=== PATIENT | male | born 1960 | race Caucasian/White ===

== ENCOUNTER 2017-03-08 06:46 | Day surgery (SDC) | payer OTHER ==
--- NOTE | 2017-03-08 09:16 | OP ---
DATE OF PROCEDURE: 03/08/2017 PROCEDURE: Right thoracentesis. PREOPERATIVE DIAGNOSIS: Right pleural effusion. POSTOPERATIVE DIAGNOSIS: Right pleural effusion. ANESTHESIA: 1% lidocaine without epinephrine. DESCRIPTION OF PROCEDURE: Informed consent was obtained from the patient prior to the procedure. Neftali tesfaye understood the risks involved including bleeding, infection, accidental lung puncture. He agreed to proceed. The patient was placed in the sitting position. The right posterior hemothorax was scrubbed at the 5th-6th interspace at the posterior midscapular line. Local anesthetic was applied at the entry sit e. A [id number]-N-[id number] catheter was placed in the pleural space and approximately 2 liters of transud ative yellow pleural fluid was removed and sent for appropriate studies. The procedure was tolerate d well. Postoperative x-ray is pending.
--- NOTE | 2017-03-08 09:33 | HP ---
REASON FOR EVALUATION: Right pleural effusion. HISTORY OF PRESENT ILLNESS: Mr. Quintero is a 56-year-old male who presented to Dr. Kelly' office ear lier this week with shortness of breath. He underwent an echocardiogram which demonstrated a pleura l effusion and subsequently he underwent chest x-ray and a CT of the chest which showed a large righ t pleural effusion. This has not been noted previously, but he says this is the only imaging he has had done in quite some time. He has been short of breath for the last 3-4 months, he has had diffi culty lying down secondary to the shortness of breath. He has had severe dyspnea with exertion. PAST MEDICAL HISTORY: 1. Hyperlipidemia. 2. Anxiety. PAST SURGICAL HISTORY: He has had a hernia repair. He is also skin growth removed from his right c hest as a child. SOCIAL HISTORY: The patient does not smoke. He drinks 2-3 drinks 3 times a week. He says this is typically beer. 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 He did smoke marijuana as a teen, but has not smoked any since. MEDICATIONS: He is on Lipitor and Lexapro. ALLERGIES: None. FAMILY MEDICAL HISTORY: Remarkable for an aneurysm in his brother. REVIEW OF SYSTEMS: He has had a 20 pound weight loss in the last 2-3 months. He has had no fever, chills, nausea, vomiting, hematemesis, melena, hematochezia, hematuria or dysuria. PHYSICAL EXAMINATION: VITAL SIGNS: Pulse is in the 80s, blood pressure 130/70, O2 sat 92% on room air. GENERAL: He is awake, alert, and in no distress. HEENT: Pupils are clear. Sclerae are anicteric. Oropharynx clear. NECK: Without adenopathy or JVD. LUNGS: He has globally diminished breath sounds in the right chest. His left chest is clear. He h as dullness to percussion in the right base. CARDIOVASCULAR: S1, S2 regular, without murmur. ABDOMEN: Soft, nontender. Liver is not palpable. EXTREMITIES: No clubbing, cyanosis, or edema. LABORATORY AND X-RAY FINDINGS: Labs from December demonstrated a white blood cell count 7.1, hematocrit 46, platelet count 285. Sodium 141, potassium 4, chloride 109, CO2 25, BUN 14, creatinine 0.8, glu cose 89, AST of 17, ALT 21. I reviewed a CT of the chest from [facility] prior to the procedure today. I also reviewed [facility] x-ray. ASSESSMENT: Right pleural effusion. PLAN: Diagnostic and therapeutic thoracentesis. Please see accompanying operative note.
[2017-03-08 09:47] LABS: BF Reference Range Comment Note:
--- NOTE | 2017-03-08 10:44 | RAD ---
SINGLE VIEW OF THE CHEST: HISTORY: Thoracentesis for pleural effusion. COMPARISON: None. FINDINGS: A single view of the chest shows a normal sized cardiomediastinal silhouette. There is a moderate r ight pleural effusion with adjacent atelectasis. No pneumothorax is seen. IMPRESSION: Moderate right pleural effusion with adjacent atelectasis. POS: [facility]
[2017-03-08 10:55] LABS: BF Color Yellow
[2017-03-08 11:37] LABS: Number Cells Counted-Fluids 100
[2017-03-12 09:17] LABS: Fungus Smear Status Final report (.)
== END 2017-03-08 09:40 | disposition home or self-care (01) ==
LOC: SDC 06:46
PROVIDERS: ATTEND Internal Medicine Critical Care Medicine
PROC: 0W9930Z Drainage of Right Pleural Cavity with Drainage Device, Percutaneous Approach (ICD-10-PCS; principal; 2017-03-08)
DX: J90 Pleural effusion, not elsewhere classified (principal); F41.9 Anxiety disorder, unspecified; Z79.899 Other long term (current) drug therapy; Z98.890 Other specified postprocedural states
CPT/HCPCS: 32554; 71010; 82150; 82945; 83615; 83986; 84157; 84478; 85060; 87070; 87116; 87205; 87206; 88112; 88305; 88341; 88342; 89051; J1642

== ENCOUNTER 2017-03-27 05:50 | Inpatient (IN) | payer OTHER ==
[2017-03-26 14:47] VITALS: BMI 31.4
[2017-03-27] MEDS ORDERED: Midazolam HCl 2 mg/2 ml Vial ONE (06:59)
[2017-03-27] MEDS ORDERED: Fentanyl 250 MCG/5 ML VIAL ONE (06:59)
[2017-03-27] MEDS ORDERED: Promethazine HCl 25 MG/ML VIAL ONE (06:59)
[2017-03-27] MEDS ORDERED: Phenylephrine 10 MG/NS 250 ML 0 ML ONE (06:59)
[2017-03-27] MEDS ORDERED: Ondansetron HCl/PF 4 MG/2 ML Vial ONE (07:30)
[2017-03-27] MEDS ORDERED: ePHEDrine/0.9% NaCl/PF SYRINGE 50 mg/10 ml ONE (07:30)
[2017-03-27] MEDS ORDERED: Lidocaine 1% PF 5 ML VIAL ONE (07:30)
[2017-03-27] MEDS ORDERED: Glycopyrrolate 0.2 MG/ML 5 ML SYRINGE ONE (07:30)
[2017-03-27] MEDS ORDERED: PHENYLEPHRINE-NS 100 MCG/ML 10 ML SYRINGE ONE (07:30)
[2017-03-27] MEDS ORDERED: Propofol 200 MG/20 ML VIAL ONE (07:30)
[2017-03-27] MEDS ORDERED: Bupivacaine HCl 0.5%/Epinephrine 1:200,000/PF 30 ml Vial ONE (08:03)
[2017-03-27] MEDS ORDERED: Talc 30 GM AEROSOL CAN ONE (08:18)
[2017-03-27] MEDS ORDERED: Promethazine HCl 25 MG/ML VIAL SLOW IVP PRN (08:57)
[2017-03-27] MEDS ORDERED: Morphine Sulfate 2 MG/ML SYRINGE SLOW IVP PRN ×2 (08:57→10:59)
[2017-03-27] MEDS ORDERED: Ondansetron HCl/PF 4 MG/2 ML Vial IVP PRN ×2 (08:57→10:59)
[2017-03-27] MEDS ORDERED: Meperidine HCl/PF 25 MG/ML VIAL SLOW IVP PRN (08:57)
--- NOTE | 2017-03-27 09:02 | OP ---
DATE OF PROCEDURE: 03/27/2017 PREOPERATIVE DIAGNOSIS: Recurrent right massive pleural effusion. POSTOPERATIVE DIAGNOSIS: Recurrent right massive pleural effusion. PROCEDURE: Right thoracoscopy with evacuation of pleural effusion, pleural biopsy, mechanical and t alc pleurodesis. SURGEON: Cosmo Chavez M.D. ANESTHESIA: General endotracheal. ESTIMATED BLOOD LOSS: Minimal. DRAINS: 28 Upper Sorbian chest tube x1. FINDINGS: Diffuse pleural implants with 4600 mL of pleural fluid that was straw colored and clear. PROCEDURE IN DETAIL: After consent was obtained, the patient was brought to the operating room and placed in the supine position on the operating room table. Appropriate anesthetic monitor was place d and general endotracheal anesthesia induced. Flexible fiberoptic bronchoscopy was used to positio n the endotracheal tube. The patient was placed in the left lateral decubitus position. Joints wer e appropriately padded. The endotracheal tube was again confirmed. Right chest wall was prepped an d draped in usual sterile fashion. Skin incision was made on the posterior axillary line, approxima tely the seventh interspace. Blunt dissection was used to enter the chest. 4600 mL of fluid was th en evacuated from his chest. The thoracoscope was then entered. On entering the chest, there was diffuse pleural and parenchymal implants on the chest wall. A second port incision was made anteriorly. This was used for instrum entation. Biopsies of the chest wall were taken and sent for routine pathologic examination. The p leura was then mechanically abraded. 5 grams of talc was infused. A 28 Upper Sorbian chest tube was place d at the apex and secured to the skin through the anterior port site. The lung was inflated under d irect vision and filled the chest cavity nicely. The posterior port site was then closed in layers and Dermabond applied to the skin. The patient tolerated the procedure well, was awakened, extubate d, and transferred to the recovery room in stable condition. Needle, sponge and instrument counts a ll reported as correct at the end of the procedure.
--- NOTE | 2017-03-27 10:51 | RAD ---
AP CHEST: Indication: Status post thoracotomy. Comparison: 03-08-17 FINDINGS: Since the comparison examination there has been removal of the large pleural effusion with improved aeration of the right lung. There is a right sided thoracostomy tube in place. No pneumothorax is ev ident. There is subcutaneous emphysema along the right chest wall. Left lung is clear. Osseous struc tures are unchanged. IMPRESSION: 1. Removal of right sided pleural effusion and placement of right sided thoracostomy tube. No pneumo thorax is evident. 2. Right chest wall subcutaneous emphysema. POS: [facility]
[2017-03-27] MEDS ORDERED: HYDROcodone/Acetaminophen 5/325 mg Tablet PO PRN (10:59)
[2017-03-27] MEDS ORDERED: Fentanyl 100 MCG/2 ML VIAL SLOW IVP PRN (10:59)
[2017-03-27] MEDS: Fentanyl 100 MCG/2 ML VIAL SLOW IVP PRN ×3 (12:04→19:56)
[2017-03-27] MEDS: Sodium Chloride 0.9% 1,000 ML IV SCH ×2 (12:12→22:16)
[2017-03-27] MEDS: HYDROcodone/Acetaminophen 5/325 mg Tablet PO PRN (15:01)
[2017-03-27] MEDS ORDERED: FLU VACC QS2017-18 36 mo. & older 0.5 ML SYRINGE IM ONE (21:00)
[2017-03-28] MEDS: HYDROcodone/Acetaminophen 5/325 mg Tablet PO PRN ×4 (02:00→21:10)
--- NOTE | 2017-03-28 07:35 | PRG ---
DATE OF SERVICE: 03/28/2017 Mr. Quintero underwent thoracoscopy by Dr. Chavez yesterday with findings of pleural studding along th e parietal surface. The pathology is pending. Approximately 5 liters of fluid was drained. PHYSICAL SIGNS: VITAL SIGNS: Temperature is 98.2, pulse 82, respirations 17, O2 sats 91, blood pressure 144/73, he has about 500 mL of fluid in his Pleur-Evac. He has no air leak. HEENT: Unremarkable. NECK: No JVD. CHEST: Chest is fairly clear. CARDIAC: S1 and S2 regular, without murmur. ABDOMEN: Soft, nontender. EXTREMITIES: Without clubbing, cyanosis, or edema. Chest x-ray post surgery yesterday shows complete drainage of the pleural fluid. No labs have been obtained as of yet. 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 PLAN: Await pathology results which will hopefully point us in the direction. He will likely need an Oncology referral by tomorrow.
--- NOTE | 2017-03-28 08:12 | RAD ---
FRONTAL RADIOGRAPH CHEST: DATE: 03/28/17. COMPARISON: 03/27/17. HISTORY: Evaluate chest following thoracotomy. FINDINGS: Increased linear interstitial density noted within both lungs. Stable mild pleural thickening noted within the lateral aspect of the right lung base. Stable right-sided chest tube in place. Possibl e small loculated pneumothorax noted in the right infrahilar region. Small volume subcutaneous gas noted within the inferior aspect of the right chest wall. Left lung unremarkable. IMPRESSION: Linear interstitial density in the lung bases, right greater than left. Right chest tube in place. Questionable small loculated pneumothorax in right infrahilar region. POS: [facility]
--- NOTE | 2017-03-28 08:37 | PRG ---
DATE OF SERVICE: 03/28/2017 SUBJECTIVE: This is a 56-year-old gentleman with a history of progressively worsening shortness of breath. He was found to have a large left pleural effusion and he is status post thoracentesis by Jose C Malin as an outpatient, but then has had a reaccumulation of the fluid. Yesterday, he underwen t thoracotomy by Dr. Chavez with pleurodesis and talc placement. He feeling some better today. He c omplains of pain and some shortness of breath with deep inspiration, but doing much better. Patholo gy is pending at this time. OBJECTIVE: VITAL SIGNS: Temperature 98.2, pulse of 82, respirations 17, pulse ox is 91-95% on room air, and bl ood pressure 144/73. GENERAL: He is awake and alert, in no acute distress. Speech is clear. NECK: Supple. HEART: Regular rate and rhythm. LUNGS: With decreased breath sounds on the right, chest tube in place with seal present. ABDOMEN: Soft. EXTREMITIES: With no edema. ASSESSMENT AND PLAN: Again, this is a 56-year-old gentleman with reaccumulation of large right pleu ral effusion. Pathology is pending of the pleural space. Further plan per Dr. Chavez and Dr. Mateo lee. I appreciate the assistance.
[2017-03-28] MEDS: Sodium Chloride 0.9% 1,000 ML IV SCH ×3 (15:24→23:56)
[2017-03-29] MEDS: HYDROcodone/Acetaminophen 5/325 mg Tablet PO PRN ×4 (02:43→21:34)
--- NOTE | 2017-03-29 08:49 | PRG ---
DATE OF SERVICE: 03/29/2017 He feels better. He is producing a lot of pleural fluid. The pathology from his pleural biopsy is not back yet. PHYSICAL EXAMINATION: VITAL SIGNS: Temperature 97.5, pulse 91, respiration rate 16, O2 sat 94% on room air, blood pressur e 159/74. HEENT: Unremarkable. NECK: No JVD. CHEST: Fairly clear. CARDIAC: S1 and S2 regular. ABDOMEN: Soft. EXTREMITIES: No edema. ASSESSMENT: Pleural space cancer - pathology still pending. PLAN: Further disposition will be made after the pathology is back. The patient may need a PleurX catheter at the time of discharge given the amount of pleural fluid he is producing.
[2017-03-29] MEDS ORDERED: Furosemide 40 MG/4 ML VIAL SLOW IVP SCH (10:00)
[2017-03-29] MEDS: Sodium Chloride 0.9% 1,000 ML IV SCH ×2 (11:14→21:36)
[2017-03-30] MEDS: HYDROcodone/Acetaminophen 5/325 mg Tablet PO PRN ×4 (02:30→21:23)
[2017-03-30] MEDS ORDERED: Furosemide 40 MG/4 ML VIAL SLOW IVP SCH (08:15)
[2017-03-30] MEDS: Sodium Chloride 0.9% 1,000 ML IV SCH ×2 (11:30→19:30)
--- NOTE | 2017-03-30 13:20 | PRG ---
DATE OF SERVICE: 03/30/2017 SERVICE: Pulmonary Medicine. INTERVAL HISTORY: The patient is doing fantastic from a postop standpoint. He has very little pain if any. He is breathing just fine and denies any nausea, vomiting or diarrhea. He would like his diet to be liberalized and given the circumstances, I think this is perfectly reasonable. Otherwise , there has been no interval change to his condition. He is little tearful this morning over his ne w diagnosis which is starting to make him sad. PHYSICAL EXAMINATION: VITAL SIGNS: Afebrile, pulse 74, blood pressure 113/77, respirations 20, saturation 95% on room air . GENERAL: The patient is awake, alert, in no apparent distress. LUNGS: Decent air entry. There is a prolonged expiratory phase, but no significant wheezing, rhonc hi or crackles. HEART: Normal rate, regular. ABDOMEN: Soft, nontender, and nondistended. Bowel sounds positive. MUSCULOSKELETAL: No cyanosis or clubbing. No pitting in the bilateral lower extremities. NEUROLOGIC: Grossly nonfocal. LABORATORY DATA: Pathology is positive for malignant mesothelioma, biphasic type. IMAGING: Chest x-ray demonstrates thoracostomy drain on the right with good expansion of the lung. There is no significant pneumothorax. There is some dilated large bowel. Otherwise, no acute card iopulmonary abnormality is identified. ASSESSMENT: 1. Malignant mesothelioma. 2. Right thoracoscopy with evacuation of pleural effusion and pleural biopsy, status post talc pleu rodesis, postoperative day #3. PLAN: Once the chest tube stops putting out fluid, this thing will be removed. Hopefully, the brandy ent can be considered for discharge from the hospital early next week. Pulmonary will continue to f ollow while he remains inhouse. I am going to liberalize his diet today.
[2017-03-31] MEDS: HYDROcodone/Acetaminophen 5/325 mg Tablet PO PRN ×4 (02:11→22:12)
[2017-03-31] MEDS: Sodium Chloride 0.9% 1,000 ML IV SCH ×2 (04:44→14:54)
--- NOTE | 2017-03-31 08:23 | RAD ---
SINGLE VIEW CHEST: Date: 03/31/17 COMPARISON: 03/28/17. HISTORY: Right pleural effusion. FINDINGS: Single view of the chest shows normal sized cardiomediastinal silhouette. There is a right-sided julio cesar st tube without evidence of pneumothorax. There may be a small residual right pleural effusion. IMPRESSION: Stable exam. POS: [facility]
[2017-03-31] MEDS ORDERED: Metolazone 5 MG TAB PO SCH (09:15)
[2017-03-31] MEDS ORDERED: Furosemide 40 MG/4 ML VIAL SLOW IVP SCH (09:15)
--- NOTE | 2017-03-31 11:44 | PRG ---
DATE OF SERVICE: 03/30/2017 SUBJECTIVE: The patient states that he is feeling less short of breath. He is upset today due to t he results of the pathology revealing malignant mesothelioma. He and his brother had been talking a bout possible exposures in the past that could increase the risk of mesothelioma. He denies chest p ain. Denies nausea and vomiting. His appetite is good and wants to eat more. I had a long discuss ion with them about procedure from here. Dr. Malin is looking into Oncology in [place] here at [facility] for further evaluation and discussed that he will have to talk with them about further wor kup and treatment from this point on. OBJECTIVE: VITAL SIGNS: Temperature 98.3, pulse of 77, respirations 16, blood pressure 113/73. GENERAL: He is awake and alert. He is sad, but no acute distress. HEENT: Mucosa is moist. He moves all extremities. HEART: Regular rate and rhythm. LUNGS: With decreased breath sounds. No wheeze, rales, or rhonchi. ASSESSMENT AND PLAN: 1. A malignant mesothelioma. Further plan per Dr. Malin and to arrange Oncology. 2. Status post right thoracotomy with pleurodesis. Further plan per Pulmonary and Cardiovascular S urgery.
[2017-03-31] MEDS ORDERED: Fluticasone Propionate Nasal Spray 16 gm Bottle NASAL SCH (14:53)
[2017-03-31] MEDS ORDERED: Loratadine/Pseudoephedrine 10/240 mg Tablet PO SCH (15:30)
--- NOTE | 2017-03-31 17:11 | PRG ---
DATE OF SERVICE: 03/31/2017 SERVICE: Pulmonary Medicine. INTERVAL HISTORY: The patient is doing great from a cardiovascular and respiratory standpoint. Cur rently, denies any shortness of breath or chest discomfort. The chest tube continues to put out sig nificant amounts of fluid. As such, he is in line for PleurX catheter tomorrow. Otherwise, there w ere no events. PHYSICAL EXAMINATION: VITAL SIGNS: Afebrile, pulse 71, blood pressure 131/83, respirations 18, saturation 96% on room air . GENERAL: Patient is awake, alert, in no apparent distress. LUNGS: Decreased air entry with no prolonged expiratory phase. No rhonchi, wheezing or crackles ar e appreciated. HEART: Normal rate, regular. ABDOMEN: Soft, nontender, nondistended, bowel sounds positive. MUSCULOSKELETAL: No cyanosis or clubbing. No pitting in the bilateral lower extremities. NEUROLOGIC: Grossly nonfocal. IMAGING: Chest x-ray demonstrates no significant effusion. Thoracostomy drain is in good position. Otherwise, the chest is stable. ASSESSMENT: 1. Malignant mesothelioma. 2. Right thoracoscopy with evacuation of pleural effusion and pleural biopsy, status post talc pleu rodesis, postoperative day #4. PLAN: The patient will undergo PleurX catheter placement in the morning. Pulmonary will continue t o follow while he remains in house. Once the PleurX is in and the patient has appropriate training, he can be considered for discharge from the hospital. I will follow along in the meantime.
[2017-03-31] MEDS ORDERED: Escitalopram Oxalate 10 mg Tablet PO SCH (21:00)
[2017-04-01] MEDS: Sodium Chloride 0.9% 1,000 ML IV SCH ×2 (04:06→13:51)
[2017-04-01] MEDS ORDERED: Fentanyl 100 MCG/2 ML VIAL ONE (07:18)
[2017-04-01] MEDS ORDERED: Midazolam HCl 2 mg/2 ml Vial ONE (07:18)
[2017-04-01] MEDS ORDERED: Ondansetron HCl/PF 4 MG/2 ML Vial IVP PRN (08:06)
[2017-04-01] MEDS ORDERED: Promethazine HCl 25 MG/ML VIAL IM PRN (08:06)
[2017-04-01] MEDS ORDERED: Promethazine HCl 25 MG/ML VIAL SLOW IVP PRN (08:06)
[2017-04-01] MEDS: HYDROcodone/Acetaminophen 5/325 mg Tablet PO PRN (08:58)
[2017-04-01] MEDS ORDERED: Fluticasone Propionate Nasal Spray 16 gm Bottle NASAL SCH (09:00)
[2017-04-01] MEDS ORDERED: Loratadine/Pseudoephedrine 10/240 mg Tablet PO SCH (09:00)
--- NOTE | 2017-04-01 09:00 | OP ---
DATE OF OPERATION: 04/01/2017 PREOPERATIVE DIAGNOSIS: Malignant right pleural effusion. POSTOPERATIVE DIAGNOSIS: Malignant right pleural effusion. PROCEDURE: Right PleurX catheter placement. SURGEON: Cosmo Chavez M.D. ANESTHESIA: 1% lidocaine for local with intravenous sedation. ESTIMATED BLOOD LOSS: Minimal. PROCEDURE IN DETAIL: After consent was obtained, the patient was brought to the operating room and placed in the supine position on the operating room table. Appropriate anesthetic monitor was place d and general endotracheal anesthesia induced. Right chest wall was prepped and draped in usual nellie rile fashion. The chest tube was prepped out of the field. Chest wall was anesthetized with 1% lid ocaine. Percutaneous access right pleural cavity was obtained and a guidewire passed. Catheter was tunneled from the midclavicular line over to the access site and a peelaway sheath in place. Priscila ter was passed through the peel-away sheath. The catheter was then connected to suction and approxi mately 200 mL of fluid evacuated. Access site was closed with a Vicryl suture. The catheter was se cured with silk suture. Chest tube suture was then cut and removed. The chest tube site was closed with Vicryl suture. Sterile dressings were applied. The patient tolerated the procedure well and was transferred to recovery room in stable condition.
[2017-04-01 11:42] VITALS: BP 115/78; TEMP 98
--- NOTE | 2017-04-01 12:32 | PRG ---
DATE OF SERVICE: 04/01/2017 SERVICE: Pulmonary Medicine. INTERVAL HISTORY: The patient is doing really well from a respiratory standpoint. He had his Pleur X catheter placed today. He denies any current fevers, chills, nausea or vomiting. This was an unc omplicated procedure. Otherwise, he has no specific complaints. There were no overnight events. Neftali tesfaye is hopeful to go home this afternoon if things remain stable. PHYSICAL EXAMINATION: VITAL SIGNS: Afebrile, pulse 68, blood pressure 115/78, respirations 18, saturation 96% on room air . GENERAL: Patient is awake, alert, in no apparent distress. LUNGS: Excellent air entry. There is no prolonged expiratory phase, wheezing, rhonchi or crackles. HEART: Normal rate, regular. ABDOMEN: Soft, nontender, nondistended. Bowel sounds positive. MUSCULOSKELETAL: No cyanosis or clubbing. No pitting in the bilateral lower extremities. NEUROLOGIC: Grossly nonfocal. ASSESSMENT: 1. Malignant mesothelioma. 2. Right thoracoscopy with talc pleurodesis, postoperative day #5. 3. PleurX catheter placement, today. PLAN: The patient will return to Dr. Malin as previously directed in the outpatient setting. He is already set up an appointment to see physicians at [facility] for his mesothelioma. If he rem ains in house, Pulmonary will continue to follow, but my suspicion is he is being discharged this af ternoon if things remain stable.
--- NOTE | 2017-04-01 12:35 | DIS ---
HISTORY OF PRESENT ILLNESS: Mr. Quintero was brought into the hospital with a recurrent large pleur al effusion. He underwent right thoracoscopy and evacuation of almost 5 liters of fluid. The chest was filled with mesothelioma which returned on pathology. The patient continued to drain via his c hest tube. Therefore, he was taken back to the operating room and a PleurX catheter placed. He is going to be referred to [facility] for mesothelioma treatment. The patient tolerated the procedu res well. DISCHARGE MEDICATIONS: Unchanged with the exception of the addition of [place] 5/500 1-2 q.6 h. p.r.n . pain.
== END 2017-04-01 13:48 | disposition home or self-care (01) | DRG 164 ==
LOC: SURG A 05:50 → SJJU 09:42
PROVIDERS: ADMIT Thoracic Surgery (Cardiothoracic Vascular Surgery); ATTEND Thoracic Surgery (Cardiothoracic Vascular Surgery)
PROC: 0W994ZZ Drainage of Right Pleural Cavity, Percutaneous Endoscopic Approach (ICD-10-PCS; principal; 2017-03-27)
PROC: 0B5N4ZZ Destruction of Right Pleura, Percutaneous Endoscopic Approach (ICD-10-PCS; 2017-03-27)
PROC: 0BBN4ZX Excision of Right Pleura, Percutaneous Endoscopic Approach, Diagnostic (ICD-10-PCS; 2017-03-27)
PROC: 3E0L4GC Introduction of Other Therapeutic Substance into Pleural Cavity, Percutaneous Endoscopic Approach (ICD-10-PCS; 2017-03-27)
PROC: 0B9N30Z Drainage of Right Pleura with Drainage Device, Percutaneous Approach (ICD-10-PCS; 2017-04-01)
DX: C45.0 Mesothelioma of pleura (principal); J91.0 Malignant pleural effusion; C45.7 Mesothelioma of other sites; E78.2 Mixed hyperlipidemia; F41.9 Anxiety disorder, unspecified
CPT/HCPCS: 36415; 71010; 80053; 85025; 86803; 88305; 88341; 88342; 88360; C1729; J0670; J1642; J1940; J2001; J2250; J2405; J2550; J2704; J3010

== ENCOUNTER 2018-03-24 18:00 | Outpatient (CLI) | payer OTHER | END 2018-03-24 18:01 | disposition home or self-care (01) | LOC: SLEEPLAB 18:00 | PROVIDERS: ATTEND Family Medicine | DX: R06.83 Snoring (principal); F41.9 Anxiety disorder, unspecified; F32.9 Major depressive disorder, single episode, unspecified; I10 Essential (primary) hypertension; C45.0 Mesothelioma of pleura | CPT/HCPCS: 95806 ==

== ENCOUNTER 2018-04-23 14:33 | Outpatient (CLI) | payer OTHER ==
[~2018-04-23 14:33] MED LIST: Heparin 10,000 UNITS/ 10 ML VIAL ONE
--- NOTE | 2018-04-23 15:20 | ULT ---
VENOUS DUPLEX SONOGRAM RIGHT LOWER EXTREMITY: History: Right leg pain and edema. FINDINGS: The right common femoral vein and greater saphenous junction were evaluated along with the femoral, d eep femoral, popliteal and posterior tibial veins. There is good color and spectral doppler flow, com pression and augmentation. IMPRESSION: No sonographic evidence of DVT right lower extremity. POS: [facility]
== END 2018-04-23 14:34 | disposition home or self-care (01) ==
LOC: BICULT 14:33
PROVIDERS: ATTEND Internal Medicine Hematology & Oncology
DX: I82.90 Acute embolism and thrombosis of unspecified vein (principal); C45.0 Mesothelioma of pleura; R60.0 Localized edema; M79.604 Pain in right leg
CPT/HCPCS: 80053; 82248; 83615; 84100; 84550; J1644

== ENCOUNTER 2018-05-01 15:14 | Outpatient (CLI) | payer OTHER ==
[~2018-05-01 15:14] MED LIST changes: +Gadobenate Dimeglumine 529 MG/1 ML (20ML VIAL) ONE; -Heparin 10,000 UNITS/ 10 ML VIAL ONE
--- NOTE | 2018-05-01 18:31 | MRI ---
PRE AND POSTCONTRAST ENHANCED MRI IMAGES OF THE BRAIN AND IACS: 05/01/18 HISTORY: Hearing loss, H90.5, unstable gait. Ringing in ears. Muffled noises. Patient has history of mesotheli jaylin one year ago. Multiplanar and multisequence pre and postcontrast enhanced MRI images of the brain obtained. MRI images demonstrate no evidence of areas of diffusion restriction. No evidence of intracranial mas ses, hemorrhages or strokes seen. Ventricles are of normal size. Internal auditory canals unremarkabl e. The cochlea, vestibule and semicircular canals are unremarkable. Normal flow voids seen in the edouard or intracranial vessels. There does appear to be a small amount of right sided mastoid fluid and a moderate amount of left mas toid fluid. IMPRESSION: Bilateral mastoid fluid, larger on the left than on the right. POS: [facility]
== END 2018-05-01 15:15 | disposition home or self-care (01) ==
LOC: BICMRI 15:14
PROVIDERS: ATTEND Otolaryngology Plastic Surgery within the Head & Neck
DX: H90.5 Unspecified sensorineural hearing loss (principal); H74.8X3 Other specified disorders of middle ear and mastoid, bilateral
CPT/HCPCS: 70553; A9579

== ENCOUNTER 2018-05-04 20:30 | Outpatient (CLI) | payer OTHER | END 2018-05-04 20:31 | disposition home or self-care (01) | LOC: SLEEPLAB 20:30 | PROVIDERS: ATTEND Family Medicine | DX: G47.33 Obstructive sleep apnea (adult) (pediatric) (principal); C45.9 Mesothelioma, unspecified; R06.83 Snoring; F41.8 Other specified anxiety disorders; I10 Essential (primary) hypertension; G47.10 Hypersomnia, unspecified; G47.61 Periodic limb movement disorder; E66.9 Obesity, unspecified; Z68.34 Body mass index [BMI] 34.0-34.9, adult; Z92.21 Personal history of antineoplastic chemotherapy | CPT/HCPCS: 95811 ==

== ENCOUNTER 2018-05-08 16:52 | Inpatient (IN) | payer OTHER ==
[2018-05-08 17:51] LABS: #Basophils 0.1 thou/uL (0.0-0.2); #Lymphocytes 1.7 thou/uL (1.20-3.40); #Monocytes 0.5 thou/uL (0.11-0.59); #Neutrophils 5.6 thou/uL (1.40-6.50); %Basophils 0.6 % (0.0-1.0); %Eosinophils 0.6 % (0.0-10.0); %Lymphocytes 21.8 % (21.0-51.0); %Neutrophils 71.1 % (42.0-75.0); Hemoglobin 14.8 g/dL (14.0-18.0); Mean Corpuscular HGB CONC 34.2 g/dL (32.0-36.0); Mean Corpuscular Hemoglobin 31.9 pg (27.0-31.0); Mean Corpuscular Volume 93.2 fL (78.0-98.0); Mean Platelet Volume 6.8 fL (7.4-10.4); Platelet Count 276 thou/uL (130-400); RBC Distribution Width 11.8 % (11.5-14.5); Red Blood Cell (RBC) Count 4.64 mill/uL (4.70-6.10); White Blood Cell (WBC) Count 7.9 thou/uL (4.8-10.8)
--- NOTE | 2018-05-08 18:03 | ULT ---
RIGHT LOWER EXTREMITY VENOUS ULTRASOUND WITH DOPPLER 05/08/18 COMPARISON: 04/23/18. HISTORY: Right leg pain, edema, swelling and erythema. TECHNIQUE: Maria scale, color flow, doppler imaging with spectral waveform analysis is performed in a right lower extremity venous system. FINDINGS: There is compressibility, presence of flow, and augmentation in a common femoral vein, femoral vein, and popliteal vein. There is flow in the greater saphenous vein, profunda vein and posterior tibial v ein. IMPRESSION: No evidence of thrombus in the right lower extremity deep venous system. POS: [facility]
[2018-05-08 18:10] LABS: ALT (SGPT) 7 U/L (8-55); AST (SGOT) 12 U/L (5-34); Albumin 4.6 g/dL (3.5-5.0); Alkaline Phosphatase 69 U/L (40-150); Anion Gap 14 mmol/L (10-20); BUN (Urea Nitrogen) 11 mg/dL (8.4-25.7); Bilirubin, Total 0.2 mg/dL (0.2-1.2); CRP (Inflammatory) Less than 0.50 mg/dL (= or < 0.5); Calc. Creatinine Clearance 0 mL/min (70-130); Carbon Dioxide 23 mmol/L (22-29); Chloride 105 mmol/L (98-107); Estimated GFR-MDRD Greater than 90; Globulin 2.8 g/dL (2.4-3.5); Glucose 94 mg/dL (70-105); Potassium 3.9 mmol/L (3.5-5.1); Protein, Total 7.4 g/dL (6.0-8.3); Sodium 138 mmol/L (136-145)
[2018-05-08] MEDS ORDERED: cefTRIAXone\\ROCEPHIN 2 GM VIAL ONE (18:49)
[2018-05-08] MEDS ORDERED: Sodium Chloride 0.9% 100 ML ONE (18:49)
[2018-05-08] MEDS ORDERED: Prochlorperazine Maleate 5 MG TAB PO PRN (21:26)
[2018-05-08] MEDS ORDERED: Ondansetron PF 4 MG/2 ML Vial SLOW IVP PRN (21:27)
[2018-05-08 21:28] VITALS: BMI 36.1
[2018-05-08] MEDS ORDERED: VANCOMYCIN IVPB PRN (21:28)
[2018-05-08] MEDS ORDERED: HYDROcodone/Acetaminophen 5/325 mg Tablet PO PRN (21:30)
[2018-05-08] MEDS ORDERED: Atorvastatin Calcium 10 MG TAB PO SCH (21:30)
[2018-05-08] MEDS ORDERED: Ibuprofen 200 MG TAB PO PRN (21:31)
[2018-05-08] MEDS ORDERED: Ondansetron ODT 8 MG TAB PO PRN (21:34)
[2018-05-08] MEDS: Vancomycin HCl 1.75 GM in Sodium Chloride 0.9% 500 ML IVPB SCH (22:25)
[2018-05-08] MEDS: Sodium Chloride 0.45% 1,000 ML IV SCH (22:25)
[2018-05-08 22:49] LABS: Bilirubin Negative (Negative); Blood, Urine Negative (Negative); Clarity CLEAR (Clear); Glucose, Urine (Dipstick) Negative (Negative); Leukocyte Negative (Negative); Nitrite Negative (Negative); Protein, Urine (Dipstick) Negative (Neg-Trace); Specific Gravity, Urine 1.015 (1.002-1.036); Urobilinogen 0.2 mg/dL (0.2-1.0); pH, Urine 5.5 (5.0-9.0)
--- NOTE | 2018-05-08 23:52 | HP ---
HISTORY OF PRESENT ILLNESS: This is a 57-year-old white male with a history of malignant pleural mes othelioma, hypertension, and hyperlipidemia who presents with a right leg infection. The patient sta myrna over the past 2 weeks, his right leg has become more swollen and red and painful. He has not not ed any history of fever. Does not recall any trauma. 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 He is followed by Dr. Esquivel and by Dr. Chacon for his mesothelioma of unknown etiology. He has no history. He has worked in warehouse all hi s life. PAST MEDICAL HISTORY: Includes hypertension, hyperlipidemia, mesothelioma, sleep apnea. PAST SURGICAL HISTORY: Include hernia surgery, colonoscopy 2012, chemo port placed 09/2017. He also had a right chest pleurodesis per patient's description. Talc powder was placed after remova l of a pleural effusion. Biopsy later on revealed the mesothelioma. MEDICATIONS: Include Lipitor 10 mg daily, metoprolol ER 50 daily, Flonase daily, omeprazole 20 mg da delisa, Claritin-D 24 mg daily, Lexapro 10 daily. FAMILY HISTORY: Father with prostate cancer, diabetes, and heart disease. Mother has sullivan d CVA, hypertension, neuropathy and heart disease. Siblings, brother from aortic aneurysm a nd with heart disease. SOCIAL HISTORY: He is single. He has no children. 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 He does not smoke and he does not drink. ALLERGIES: None. REVIEW OF SYSTEMS: As above. PHYSICAL EXAMINATION: VITAL SIGNS: Temperature 98.5, pulse 75, blood pressure 137/95, respirations 18, pulse ox 99. GENERAL: No acute distress. HEENT: Clear. HEART: Regular rate and rhythm. LUNGS: Clear. ABDOMEN: Soft. EXTREMITIES: Right leg swollen, 1+ with erythema of the distal two-thirds of the right leg. Some ab rasions of the medial ankle noted. LABORATORY: White count 7.9, H and H is 14 and 43. D-dimer less than 0.27. Electrolytes normal. C reatinine 0.81, BUN 11. Liver functions normal. ASSESSMENT: 1. Right leg cellulitis. 2. Sleep apnea. 3. Hypertension. 4. Hyperlipidemia. 5. Mesothelioma. PLAN: 1. Zosyn and vancomycin started. 2. CBC, comprehensive in a.m. 3. Elevate right leg. 4. Continue to monitor the leg. 5. Can resume all home meds.
[2018-05-09] MEDS: Piperacillin/Tazobactam 3.375 GM in Sodium Chloride 0.9% 100 ML IVPB SCH ×4 (01:12→17:48)
[2018-05-09 04:30] LABS: ALT (SGPT) 53 U/L (8-55); AST (SGOT) 39 U/L (5-34); Albumin 3.2 g/dL (3.5-5.0); Alkaline Phosphatase 70 U/L (40-150); Anion Gap 12 mmol/L (10-20); BUN (Urea Nitrogen) 13 mg/dL (8.4-25.7); Bilirubin, Total 0.5 mg/dL (0.2-1.2); Calc. Creatinine Clearance 165 mL/min (70-130); Calcium 8.8 mg/dL (7.8-10.44); Carbon Dioxide 23 mmol/L (22-29); Chloride 110 mmol/L (98-107); Estimated GFR-MDRD 89; Globulin 2.5 g/dL (2.4-3.5); Glucose 91 mg/dL (70-105); Potassium 3.5 mmol/L (3.5-5.1); Protein, Total 5.7 g/dL (6.0-8.3); Sodium 141 mmol/L (136-145)
[2018-05-09] MEDS: Vancomycin HCl 1.75 GM in Sodium Chloride 0.9% 500 ML IVPB SCH ×3 (06:20→22:27)
[2018-05-09 06:42] LABS: Hemoglobin 10.2 g/dL (14.0-18.0); Mean Corpuscular HGB CONC 32.7 g/dL (32.0-36.0); Mean Corpuscular Hemoglobin 29.7 pg (27.0-31.0); Mean Corpuscular Volume 90.8 fL (78.0-98.0); Mean Platelet Volume 7.4 fL (7.4-10.4); Platelet Count 214 thou/uL (130-400); Red Blood Cell (RBC) Count 3.43 mill/uL (4.70-6.10); White Blood Cell (WBC) Count 4.5 thou/uL (4.8-10.8)
[2018-05-09 06:54] LABS: Eosinophils 5 % (0-10); Lymphocytes 33 % (21-51); MDiff Complete? YES; Monocytes 23 % (0-10); Neutrophil 39 % (42-75)
[2018-05-09] MEDS: Sodium Chloride 0.45% 1,000 ML IV SCH ×3 (07:39→22:32)
[2018-05-09] MEDS: Escitalopram Oxalate 10 mg Tablet PO SCH (08:22)
[2018-05-09] MEDS: Loratadine/Pseudoephedrine 10/240 mg Tablet PO SCH (08:23)
[2018-05-09] MEDS: Folic Acid 1 MG TAB PO SCH (08:23)
[2018-05-09] MEDS: Polyethylene Glycol 3350 17 GM Packet PO SCH (08:26)
--- NOTE | 2018-05-09 08:41 | PRG ---
DATE OF SERVICE: 05/09/2018 SUBJECTIVE: No complaints by patient. He states his right leg is feeling better. OBJECTIVE: VITAL SIGNS: Temperature 98.0, pulse 75, respirations 18, blood pressure 124/73. HEART: Regular rate and rhythm. LUNGS: Clear. ABDOMEN: Soft, nontender. EXTREMITIES: Right lower extremity, markedly improved. The swelling has gone down significantly. E rythema is slowly resolving, but still prominent. LABORATORY DATA: White count 4.5, H&H 10 and 31. Sodium 141, potassium 3.5, chloride 110, creatinin e 0.89, BUN 13. Liver functions normal. ASSESSMENT: 1. Right leg cellulitis. 2. Anemia may be dilutional. 3. Sleep apnea. 4. Hypertension. 5. Hyperlipidemia. 6. Mesothelioma. PLAN: 1. Continue Zosyn and vancomycin. 2. Continue elevation. 3. Hopefully, can discharge home by Saturday or Saturday.
[2018-05-09] MEDS: Fluticasone Propionate Nasal Spray 16 gm Bottle NASAL SCH ×2 (09:46→20:26)
[2018-05-09] MEDS: Atorvastatin Calcium 10 MG TAB PO SCH (20:27)
[2018-05-09 22:52] LABS: Vancomycin, Trough 29.6 ug/mL
[2018-05-09] MEDS ORDERED: Vancomycin HCl 1.75 GM in Sodium Chloride 0.9% 500 ML IVPB SCH (23:15)
[2018-05-09] MEDS ORDERED: VANCOMYCIN IVPB PRN (23:34)
[2018-05-10] MEDS: Piperacillin/Tazobactam 3.375 GM in Sodium Chloride 0.9% 100 ML IVPB SCH ×4 (00:34→17:51)
[2018-05-10] MEDS: Sodium Chloride 0.45% 1,000 ML IV SCH (01:41)
[2018-05-10 05:53] LABS: Anion Gap 12 mmol/L (10-20); BUN (Urea Nitrogen) 10 mg/dL (8.4-25.7); Calc. Creatinine Clearance 161 mL/min (70-130); Calcium 8.6 mg/dL (7.8-10.44); Carbon Dioxide 24 mmol/L (22-29); Chloride 109 mmol/L (98-107); Estimated GFR-MDRD 86; Glucose 85 mg/dL (70-105); Potassium 3.9 mmol/L (3.5-5.1); Sodium 141 mmol/L (136-145)
[2018-05-10 06:52] LABS: Band 3 % (5-11); Eosinophils 2 % (0-10); Lymphocytes 25 % (21-51); MDiff Complete? YES; Mean Corpuscular HGB CONC 33.5 g/dL (32.0-36.0); Mean Corpuscular Hemoglobin 30.8 pg (27.0-31.0); Mean Corpuscular Volume 91.7 fL (78.0-98.0); Mean Platelet Volume 7.7 fL (7.4-10.4); Monocytes 26 % (0-10); Neutrophil 44 % (42-75); Platelet Count 242 thou/uL (130-400); RBC Distribution Width 13.2 % (11.5-14.5); Red Blood Cell (RBC) Count 3.25 mill/uL (4.70-6.10)
[2018-05-10] MEDS: Escitalopram Oxalate 10 mg Tablet PO SCH (09:15)
[2018-05-10] MEDS: Folic Acid 1 MG TAB PO SCH (09:15)
[2018-05-10] MEDS: Loratadine/Pseudoephedrine 10/240 mg Tablet PO SCH (09:16)
[2018-05-10] MEDS: Polyethylene Glycol 3350 17 GM Packet PO SCH (09:20)
[2018-05-10] MEDS: Fluticasone Propionate Nasal Spray 16 gm Bottle NASAL SCH ×2 (10:37→22:08)
[2018-05-10 10:45] LABS: Vancomycin, Random 15.8 ug/mL (See Comment)
[2018-05-10] MEDS: Vancomycin HCl 1.75 GM in Sodium Chloride 0.9% 500 ML IVPB SCH (13:05)
--- NOTE | 2018-05-10 19:22 | PRG ---
DATE OF SERVICE: 05/10/2018 HISTORY OF PRESENT ILLNESS: The patient has no acute complaints. He states that he is at week 2 or 3 in between mesothelioma chemotherapy regimen. He has no baseline nausea, vomiting, diarrhea, cough , etc. at this point in time. Reports swelling to right lower extremity where his cellulitis is loca stefania to be slightly improved. He is having it elevated somewhat while in bed, still too painful to be ar weight when attempts to ambulate to the restroom. The patient denies any shortness of breath with findings of a dilutional anemia, anemia of chronic disease. The patient has no acute complaints. OBJECTIVE: VITAL SIGNS: Temperature of 97.8, pulse of 91, respiratory rate of 16, oxygen saturation 96% on room air, blood pressure of 150/99. GENERAL: The patient is alert and oriented, in no acute distress. HEENT: Normocephalic, atraumatic. Extraocular movements are intact. Sclerae are white. Oral mucos a is moist. NECK: Supple. HEART: Regular rate and rhythm. No murmurs auscultated. LUNGS: Clear to auscultation bilaterally. No rubs or wheezes. ABDOMEN: Soft, nontender, positive bowel sounds throughout. EXTREMITIES: Right lower extremity with pitting edema 1+, erythema and pallor to the entire zimmerman, no t exceeding superior and inferior borders marked with marking pen. However, no significant recession from marked lines either. The patient states this is slightly less red from admission. SKIN: No changes of the patient's port line in his chest wall, right side on skin examination. NEUROLOGIC: The patient is alert and oriented x3, no focal deficits. Speech is normal. LABORATORY DATA: White blood cell count of 5.0, hemoglobin of 10.0, platelet count of 242,000. Sodi um of 141, potassium of 3.9, creatinine of 0.91, glucose of 85. Vancomycin trough of 15.8 that is ra ndom, trough yesterday was 29.6. Blood cultures negative at 48 hours x2. ASSESSMENT AND PLAN: Right lower extremity cellulitis, mesothelioma, anemia of chronic disease, dehy dration currently resolved and hypertension. Continuing the patient's beta marie. Discontinuing I V fluids. We will continue to trend cell counts and creatinine. At this point in time, continuing v ancomycin and Zosyn hospital exposures with the patient's chemotherapy regimen; however, likeli tang was soft tissue infection of his skin. The patient may be looked swapping over to orals with st ronger Staph and Strep coverage and vancomycin. We will wrap the patient's leg in Jalen wrap today, tr ansfer him to inpatient status and attempt transition to orals. The patient is making slow progress.
[2018-05-10] MEDS: Enoxaparin Sodium 40 MG/0.4 ML SYRINGE SC SCH (20:28)
[2018-05-10] MEDS: Atorvastatin Calcium 10 MG TAB PO SCH (20:29)
[2018-05-11] MEDS: Piperacillin/Tazobactam 3.375 GM in Sodium Chloride 0.9% 100 ML IVPB SCH ×2 (00:13→05:21)
[2018-05-11] MEDS: Vancomycin HCl 1.75 GM in Sodium Chloride 0.9% 500 ML IVPB SCH (00:14)
[2018-05-11 05:32] LABS: Anion Gap 11 mmol/L (10-20); BUN (Urea Nitrogen) 9 mg/dL (8.4-25.7); Calc. Creatinine Clearance 163 mL/min (70-130); Calcium 8.8 mg/dL (7.8-10.44); Carbon Dioxide 24 mmol/L (22-29); Chloride 110 mmol/L (98-107); Estimated GFR-MDRD 88; Glucose 90 mg/dL (70-105); Potassium 3.4 mmol/L (3.5-5.1); Sodium 142 mmol/L (136-145)
[2018-05-11 06:36] LABS: Band 1 % (5-11); Eosinophils 2 % (0-10); Lymphocytes 40 % (21-51); MDiff Complete? YES; Mean Corpuscular HGB CONC 34.7 g/dL (32.0-36.0); Mean Corpuscular Hemoglobin 31.4 pg (27.0-31.0); Mean Corpuscular Volume 90.3 fL (78.0-98.0); Mean Platelet Volume 7.2 fL (7.4-10.4); Monocytes 19 % (0-10); Neutrophil 37 % (42-75); Platelet Count 261 thou/uL (130-400); RBC Distribution Width 12.8 % (11.5-14.5); Reactive Lymphocytes 1 % (0-10); Red Blood Cell (RBC) Count 3.19 mill/uL (4.70-6.10); White Blood Cell (WBC) Count 4.4 thou/uL (4.8-10.8)
[2018-05-11] MEDS ORDERED: Clindamycin 150 MG CAP PO SCH (07:30)
[2018-05-11] MEDS: Folic Acid 1 MG TAB PO SCH (08:08)
[2018-05-11] MEDS: Escitalopram Oxalate 10 mg Tablet PO SCH (08:09)
[2018-05-11] MEDS: Polyethylene Glycol 3350 17 GM Packet PO SCH (08:11)
[2018-05-11] MEDS: Loratadine/Pseudoephedrine 10/240 mg Tablet PO SCH (08:40)
[2018-05-11] MEDS: Fluticasone Propionate Nasal Spray 16 gm Bottle NASAL SCH ×2 (08:41→20:30)
[2018-05-11] MEDS: Clindamycin 150 MG CAP PO SCH ×2 (13:24→20:28)
--- NOTE | 2018-05-11 13:45 | PRG ---
DATE OF SERVICE: 05/11/2018 HISTORY OF PRESENT ILLNESS: The patient transitioned to floor on inpatient status change without incident, has Jalen wrap to right lower extremity, continues to have some swelling; however, it is improved. Patient has tolerated IV antibiotics but has been transitioned to clindamycin and Levaquin this morning. Patient verbalized understanding regarding observation during transition to oral antibiotics. Able to bear some weight and has not attempted to walk around the unit; however, would like to try to do so today. He is able to ambulate to the restroom. He has no other reported difficulties. PHYSICAL EXAMINATION: VITAL SIGNS: Temperature of 97.6, pulse of 76, respiratory rate of 16, oxygen saturation 97% on room air, blood pressure 146/84. GENERAL: Patient is alert and oriented, no acute distress. HEENT: Head is normocephalic, atraumatic. Extraocular movements are intact. Sclerae are white. Oral mucosa is moist. NECK: Supple. HEART: Regular rate and rhythm. No murmurs auscultated. LUNGS: Clear to auscultation bilaterally. No rubs or wheezes. ABDOMEN: Protuberant, soft, nontender. Positive bowel sounds throughout. Port in place to the anterior chest wall, right side. EXTREMITIES: Right lower extremity with Jalen wrap removed, still remains with pitting edema +1. Erythema and pallor have somewhat improved to zimmerman; however, still remained throughout the majority of the patient's right lower extremity. No extension at lower margin, some resolution at superior margin of the zimmerman. LABORATORY DATA: White blood cell count of 4.4, hemoglobin of 10.0, platelet count of 261, potassium of 3.4, sodium of 142, CO2 of 24, creatinine of 0.9. Blood cultures x2 negative at 48 hours. ASSESSMENT AND PLAN: Right lower extremity cellulitis, mesothelioma , anemia of chronic disease, hypertension. Transition to oral antibiotics as above. Patient has pending CT scan with a followup with his cancer physician I believe he states is, Dr. Chacon with continuation of chemotherapy every 3 weeks pending next week following scan and patient should likely be appropriate for discharge tomorrow if oral transition goes well. We will consult walking program to attempt to ambulate the patient better while inpatient, as he is still having pain in his extremity with weightbearing. The patient is on GI and DVT prophylaxis. [facility]
[2018-05-11] MEDS: Atorvastatin Calcium 10 MG TAB PO SCH (20:29)
[2018-05-11] MEDS: Enoxaparin Sodium 40 MG/0.4 ML SYRINGE SC SCH (20:29)
[2018-05-12] MEDS: Clindamycin 150 MG CAP PO SCH (05:41)
[2018-05-12 07:51] VITALS: BP 143/96; TEMP 97.8
[2018-05-12] MEDS: Escitalopram Oxalate 10 mg Tablet PO SCH (07:52)
[2018-05-12] MEDS: Folic Acid 1 MG TAB PO SCH (07:53)
[2018-05-12] MEDS: Loratadine/Pseudoephedrine 10/240 mg Tablet PO SCH (07:53)
[2018-05-12] MEDS: Polyethylene Glycol 3350 17 GM Packet PO SCH (07:54)
[2018-05-12] MEDS: Fluticasone Propionate Nasal Spray 16 gm Bottle NASAL SCH (08:01)
--- NOTE | 2018-05-12 22:49 | DIS ---
DATE OF ADMISSION: 05/08/2018 DATE OF DISCHARGE: 05/12/2018 ADMISSION DIAGNOSIS: Right leg cellulitis. OTHER DIAGNOSES: Sleep apnea; hypertension; hyperlipidemia; mesothelioma, in the process of therapy. DISCHARGE DIAGNOSIS: Right leg cellulitis, improved. CONSULTATIONS: None. PROCEDURES: IV antibiotics. Vascular ultrasound. HOSPITAL COURSE: This is a 57-year-old gentleman with a history of mesothelioma and treatment with c hemotherapy with [facility] and Dr. Chacon, who presented to the emergency department with persiste nt swelling and redness of his right leg. He was found to have a right lower extremity cellulitis. He ruled out for DVT with a normal ultrasound. He had significant improvement with IV antibiotics in cluding Zosyn and vancomycin on admission. He is transitioned off of the IV antibiotics to oral anti biotics overnight with clindamycin and Levaquin and continues to do well with decreased redness and d ecreased swelling and stable for discharge home. DISCHARGE PHYSICAL EXAMINATION: VITAL SIGNS: Temperature 97.8, T-max 98.4, pulse of 76, respirations 19, pulse ox 97% on room air, b lood pressure 143/96. GENERAL: He is awake and alert, in no acute distress. Speech is clear. NECK: Supple. HEART: Regular rate and rhythm. LUNGS: Clear. EXTREMITIES: Right leg with a decreased redness, a faint pinkness to mid zimmerman, swelling is trace lanie ateral lower extremities. LABORATORY DATA: No labs done for the morning. Blood cultures have been negative. Vascular ultraso und again showed no evidence of DVT on admission on the right side. DISCHARGE MEDICATIONS: Include Soquel p.r.n. pain, clindamycin 300 mg t.i.d., Levaquin 750 mg daily, metoprolol 25 mg daily, Protonix 40 mg daily, Flonase p.r.n., Lexapro 10 mg daily, Lipitor 10 mg barbara y. FOLLOWUP INSTRUCTIONS: The patient to follow up in my office in 1-2 weeks. Follow up with [facility] on next week for a scan and therapy.
== END 2018-05-12 14:10 | disposition home or self-care (01) | DRG 603 ==
LOC: ERS 16:52 → OBSVTOIN 19:34 → 2SW 19:34 → T4-A 05-10 12:41
PROVIDERS: ADMIT Family Medicine; ATTEND Family Medicine
DX: L03.115 Cellulitis of right lower limb (principal); I10 Essential (primary) hypertension; E78.5 Hyperlipidemia, unspecified; G47.30 Sleep apnea, unspecified; C45.7 Mesothelioma of other sites; Z79.899 Other long term (current) drug therapy
CPT/HCPCS: 36415; 80048; 80053; 80202; 81003; 85025; 85379; 86140; 95811; 96365; J0696; J1650; J2543; J3370; J7050

== ENCOUNTER 2019-01-26 09:53 | Inpatient (IN) | payer BC, OTHER ==
[2019-01-26] MEDS ORDERED: Acetaminophen 500 MG TAB ONE ×2 (10:25→17:29)
[2019-01-26 10:32] LABS: #Eosinphils 0.1 thou/uL (0.0-0.7); #Lymphocytes 0.7 thou/uL (1.20-3.40); #Monocytes 1.1 thou/uL (0.11-0.59); #Neutrophils 12.4 thou/uL (1.40-6.50); %Basophils 0.2 % (0.0-1.0); %Eosinophils 0.5 % (0.0-10.0); %Lymphocytes 4.7 % (21.0-51.0); %Monocytes 7.7 % (0.0-10.0); %Neutrophils 86.8 % (42.0-75.0); Hemoglobin 12.2 g/dL (14.0-18.0); Mean Corpuscular HGB CONC 34.4 g/dL (32.0-36.0); Mean Corpuscular Hemoglobin 29.4 pg (27.0-31.0); Mean Corpuscular Volume 85.5 fL (78.0-98.0); Mean Platelet Volume 6.9 fL (7.4-10.4); Platelet Count 359 thou/uL (130-400); RBC Distribution Width 12.5 % (11.5-14.5); Red Blood Cell (RBC) Count 4.16 mill/uL (4.70-6.10); White Blood Cell (WBC) Count 14.3 thou/uL (4.8-10.8)
[2019-01-26 10:46] LABS: ALT (SGPT) 25 U/L (8-55); AST (SGOT) 16 U/L (5-34); Albumin 3.7 g/dL (3.5-5.0); Alkaline Phosphatase 91 U/L (40-150); Anion Gap 13 mmol/L (10-20); BUN (Urea Nitrogen) 15 mg/dL (8.4-25.7); Bilirubin, Total 0.9 mg/dL (0.2-1.2); Calc. Creatinine Clearance 0 mL/min (70-130); Calcium 9.3 mg/dL (7.8-10.44); Carbon Dioxide 25 mmol/L (22-29); Chloride 100 mmol/L (98-107); Estimated GFR-MDRD 66; Globulin 3.6 g/dL (2.4-3.5); Glucose 104 mg/dL (70-105); Potassium 3.8 mmol/L (3.5-5.1); Protein, Total 7.3 g/dL (6.0-8.3); Sodium 134 mmol/L (136-145)
[2019-01-26] MEDS ORDERED: Piperacillin/Tazobactam 4.5 GM in Sodium Chloride 0.9% 100 ML IVPB SCH ×2 (11:15→22:00)
--- NOTE | 2019-01-26 11:41 | RAD ---
PORTABLE CHEST ONE VIEW: 01/26/2019 10:10 a.m. HISTORY: Cough. Fever. COMPARISON: 03/31/2017 FINDINGS: A right-sided Port-A-Cath is present with the tip in the patient projection of the SVC. Heart size i s normal. There is elevation of the right hemidiaphragm. Chronic changes are again seen. No lobar consolidation, pneumothoraces, sugar pulmonary edema, or pleural effusions are identified. POS: [facility]
[2019-01-26 14:36] LABS: Bilirubin Negative (Negative); Blood, Urine Negative (Negative); Clarity Clear (Clear); Glucose, Urine (Dipstick) Normal (Negative); Leukocyte Negative Leu/uL (Negative); Nitrite Negative (Negative); Protein, Urine (Dipstick) 20 mg/dL (Neg-Trace); Urobilinogen Normal mg/dL (Less than 2)
[2019-01-26] MEDS ORDERED: Prochlorperazine Maleate 5 MG TAB PO PRN (19:37)
[2019-01-26] MEDS ORDERED: Senokot S 8.6-50 MG TAB PO PRN (19:40)
[2019-01-26] MEDS ORDERED: Ondansetron ODT 4 MG TAB PO PRN (19:40)
[2019-01-26] MEDS ORDERED: Ondansetron PF 4 MG/2 ML Vial IVP PRN (19:40)
[2019-01-26] MEDS ORDERED: Labetalol HCl 100 MG/20 ML VIAL SLOW IVP PRN (19:40)
[2019-01-26] MEDS ORDERED: hydrOXYzine 25 MG TAB PO PRN (19:40)
[2019-01-26] MEDS ORDERED: Benzonatate 100 MG CAP PO PRN (19:40)
[2019-01-26] MEDS ORDERED: HYDROcodone/Acetaminophen 5/325 mg Tablet PO PRN (19:40)
[2019-01-26] MEDS: DULoxetine 30 MG CAP PO SCH (20:45)
[2019-01-26] MEDS: NS 0.9% w/ 40 MEQ KCL 1,000 ML IV SCH (20:45)
[2019-01-26] MEDS: Acetaminophen 500 MG TAB PO PRN (20:45)
[2019-01-26] MEDS: Atorvastatin Calcium 10 MG TAB PO SCH (20:45)
[2019-01-26] MEDS: Azelastine 137 MCG/Spray 30 ML NS SCH (20:53)
[2019-01-27 03:03] VITALS: BMI 35.1
--- NOTE | 2019-01-27 04:33 | HP ---
PRIMARY CARE PHYSICIAN: Dr. Peter Quarles. CHIEF COMPLAINT: Fever. HISTORY OF PRESENT ILLNESS: The patient was having pending mesothelioma surgery with [facility] this coming , had undergone cardiac clearance including echocardiogram. The patient with history of right lower extremity cellulitis, was on long-term suppression therapy with penicillin, low-dose twice a day. When the patient came down with fever, presented to the emergency department, found to met SIRS criteria, not responding to initial bolus therapy, was given Zosyn in the emergency department and vancomycin prior to arrival to floor. The patient states he has a dry cough, but otherwise no other signs of symptoms. On exam, the patient does have mild skin break to the right lower extremity with increased erythema and pallor compared to left lower extremity. ALLERGIES: NO KNOWN DRUG ALLERGIES. PAST MEDICAL HISTORY: Hyperlipidemia, gastroesophageal reflux disease, malignant pleural mesothelioma secondary to hypertension, dysthymia, obstructive sleep apnea, sensorineural hearing loss with subsequent balance instability. HOME MEDICATIONS: Include fluticasone, metoprolol succinate 50 mg, azelastine 1% nasal spray, atorvastatin 10 mg, penicillin 250 mg b.i.d., Claritin-D p.r.n. PRIOR SURGERY: Port placement in 2018, prior staph infection to right lower extremity in 04/2018. SOCIAL HISTORY: The patient is a nonsmoker. Review of vital signs on arrival to floor currently unavailable; however, fever reported of 100.2 per nursing staff. LABORATORY WORK: White blood cell count of 14.3, hemoglobin of 12.2, neutrophil percent 86. Sodium of 134, creatinine of 1.1. Lactic acid of 1.6. Troponin less than 0.01. Albumin of 3.7. Urinalysis normal. Chest x-ray without acute cardiopulmonary events. Wound care follow on admission for right lower extremity with several heme-crusted lesions, small surrounding erythema right lower extremity was characterized. PHYSICAL EXAMINATION: GENERAL: The patient is alert and oriented, in no acute distress. HEENT: Head is normocephalic and atraumatic. Extraocular movements are intact. Sclerae are white. Oral mucosa is moist. NECK: Supple. HEART: Tachycardic. The patient is tachypneic. No murmurs auscultated. LUNGS: Clear to auscultation bilaterally. No rubs or wheezes. ABDOMEN: Soft, nontender. Positive bowel sounds throughout. Protuberant. EXTREMITIES: Lower extremities; right lower extremity with erythema and pallor, heme-crusted lesions to the anterior zimmerman as above, some extending erythema from there. No formal exudates at this point in time. NEUROLOGIC: The patient is alert and oriented x3. No focal deficits. Speech is normal. ASSESSMENT AND PLAN: Sepsis secondary to right lower extremity cellulitis. Start the patient on vancomycin and Zosyn. Not likely to be erysipelas secondary to the patient being on penicillin chronically on outpatient basis for prophylaxis from prior infections. We will follow up lab trend, push IV fluids overnight. Follow up the culture results. Consulting Oncology for continued care prior, local patient of Dr. Chacon. We would recommend contacting [facility] to cancel the patient's surgery on during business hours tomorrow. Follow vancomycin trough. The patient states he will likely uses his own home CPAP for obstructive sleep apnea. Continuing metoprolol for the patient's hypertension, Protonix for GERD. Job ID: [id number]
[2019-01-27] MEDS: Acetaminophen 500 MG TAB PO PRN ×2 (05:38→20:14)
[2019-01-27 06:40] LABS: #Lymphocytes 0.8 thou/uL (1.20-3.40); #Monocytes 0.7 thou/uL (0.11-0.59); %Basophils 0.8 % (0.0-1.0); %Eosinophils 0.5 % (0.0-10.0); %Lymphocytes 13.9 % (21.0-51.0); %Monocytes 13.1 % (0.0-10.0); %Neutrophils 71.7 % (42.0-75.0); Hemoglobin 10.8 g/dL (14.0-18.0); Mean Corpuscular HGB CONC 34.6 g/dL (32.0-36.0); Mean Corpuscular Hemoglobin 29.5 pg (27.0-31.0); Mean Corpuscular Volume 85.4 fL (78.0-98.0); Mean Platelet Volume 7.2 fL (7.4-10.4); Platelet Count 243 thou/uL (130-400); RBC Distribution Width 12.1 % (11.5-14.5); Red Blood Cell (RBC) Count 3.64 mill/uL (4.70-6.10); White Blood Cell (WBC) Count 5.6 thou/uL (4.8-10.8)
[2019-01-27 07:00] LABS: ALT (SGPT) 25 U/L (8-55); AST (SGOT) 25 U/L (5-34); Alkaline Phosphatase 81 U/L (40-150); Anion Gap 12 mmol/L (10-20); BUN (Urea Nitrogen) 14 mg/dL (8.4-25.7); Bilirubin, Total 0.7 mg/dL (0.2-1.2); Calc. Creatinine Clearance 141 mL/min (70-130); Calcium 8.7 mg/dL (7.8-10.44); Carbon Dioxide 22 mmol/L (22-29); Chloride 104 mmol/L (98-107); Estimated GFR-MDRD 75; Globulin 3.1 g/dL (2.4-3.5); Glucose 104 mg/dL (70-105); Potassium 3.7 mmol/L (3.5-5.1); Protein, Total 6.1 g/dL (6.0-8.3); Sodium 134 mmol/L (136-145)
[2019-01-27] MEDS: Azelastine 137 MCG/Spray 30 ML NS SCH ×2 (08:03→20:15)
[2019-01-27] MEDS: DULoxetine 30 MG CAP PO SCH ×2 (08:03→20:14)
[2019-01-27] MEDS ORDERED: Albuterol Sulfate 2.5 mg/3 ml Neb NEB PRN (08:06)
--- NOTE | 2019-01-27 08:20 | PRG ---
DATE OF SERVICE: 01/27/2019 SUBJECTIVE: The patient feels about the same. He continues to have worsening cough, fever seem to broke last night with increased chills and sweats. Continues to have a fever up to 102.3 last night. Denies shortness of breath. Denies chest pain. Denies pain in his right leg. Minimal redness in his right leg. Denies nausea or vomiting. OBJECTIVE: VITAL SIGNS: Temperature 101.3, pulse of 90, respirations 16, blood pressure 116/75, and pulse ox is 95% on room air. GENERAL: He is awake and alert. No acute distress. He is coughing in bed. HEENT: Mucosa is moist. NECK: Supple. HEART: Regular rate and rhythm. LUNGS: Distant, but no wheeze, rales, or rhonchi. ABDOMEN: Soft. EXTREMITIES: Right lower extremity with few excoriations with some surrounding redness. No discharge. No swelling. No obvious signs of cellulitis. LABORATORY DATA: White blood cell count down to 5.6 from 14.3, hemoglobin and hematocrit 10.8 and 31.3. Normocytic indices, platelets of 243. Sodium 134, potassium 3.7, chloride 104, CO2 of 22, BUN and creatinine 14 and 1.03 with a GFR of 75, albumin of 3.0. Urinalysis was negative. Blood cultures were negative x12 hours. Urine culture growing gram-negative neda. Chest x-ray reported as no active disease. ASSESSMENT/PLAN: 1. This is a 58-year-old gentleman undergoing chemotherapy for pleural mesothelioma at [facility] and a history of right lower extremity cellulitis from April 2018, now admitted with sepsis syndrome. He is on broad-spectrum antibiotics and will continue those. Await blood and urine cultures to finalize. 2. Cough, which has worsened over the past 2-3 weeks. Suspicious etiology of his fever and sepsis syndrome. We will check a CT of his chest due to his history of mesothelioma and now that he is rehydrated. 3. Mesothelioma. We will continue to follow up with [facility] and their plans. Job ID: [id number]
[2019-01-27] MEDS: NS 0.9% w/ 40 MEQ KCL 1,000 ML IV SCH ×2 (09:00→16:33)
[2019-01-27] MEDS ORDERED: Escitalopram Oxalate 10 mg Tablet PO SCH (09:00)
--- NOTE | 2019-01-27 09:10 | CT ---
EXAM: CT of the chest without contrast HISTORY: Cough, fever, and mesothelioma COMPARISON: None TECHNIQUE: Multiple contiguous axial images were obtained in a CT the chest without contrast. Coronal reformats were performed. FINDINGS: HEART: Normal in size without focal cardiac abnormality MEDIASTINUM: There is a 6.1 cm subcarinal lymph node. Evaluation of the mediastinum is limited withou t IV contrast. LUNGS: There is a 7.4 cm mass in the right lower lobe with central low density which may represent ne crosis. There are too numerous to count masses scattered throughout the right thorax. Majority of these masses are peripheral, but some of the masses are more central within the pulmonary parenchyma in the right upper lobe. There is a small loculated right pneumothorax which likely is secondary to trapped lung. No left-sided pleural effusion, pneumothorax, or masses are seen. CHEST WALL SOFT TISSUES: Mediport with its tip in the superior vena cava. OSSEOUS STRUCTURES: Unremarkable VISUALIZED SUBDIAPHRAGMATIC STRUCTURES: Unremarkable IMPRESSION: Multiple right-sided pulmonary masses are consistent with the diagnosis of mesothelioma. There is met astatic disease to the mediastinum.
[2019-01-27] MEDS: Vancomycin HCl 1.75 GM in Sodium Chloride 0.9% 500 ML IVPB SCH ×2 (09:22→20:15)
[2019-01-27] MEDS: guaiFENesin ER 600 MG TAB PO SCH ×2 (09:22→20:14)
[2019-01-27] MEDS: Piperacillin/Tazobactam 4.5 GM in Sodium Chloride 0.9% 100 ML IVPB SCH ×2 (09:23→17:06)
--- NOTE | 2019-01-27 19:16 | CON ---
DATE OF CONSULTATION: REASON FOR CONSULTATION: Mesothelioma. HISTORY OF PRESENT ILLNESS: Mr. Quintero is a pleasant 58-year-old gentleman, who has locally advanced right pleural mesothelioma. He was on maintenance Alimta until July 2018. He had progression on his CT scans in November 2018. He was scheduled for pleural decortication surgery at [facility] later this week. He presented to this facility with a fever greater than 101. He was admitted for sepsis and started on empiric antibiotics. He has a history of right leg cellulitis, although that has cleared up over the last few weeks. He recently traveled to [place], [place], and [place]. He has had a chronic cough, which he states has worsened over the last few weeks. PAST MEDICAL HISTORY: 1. Mesothelioma. 2. Hyperlipidemia. 3. Asbestosis. 4. Anxiety. 5. History of cellulitis. 6. Right forearm skin cancer. PAST SURGICAL HISTORY: 1. Colonoscopy. 2. Inguinal hernia repair. 3. Thoracoscopy with pleurodesis in 2017. 4. Mediastinoscopy in 2017. ALLERGIES: NO KNOWN DRUG ALLERGIES. HOME MEDICATIONS: 1. Cymbalta. 2. Flonase. 3. Lasix. 4. Hydrocodone. 5. Motrin. 6. Metoprolol. 7. Prilosec. 8. Penicillin. 9. Lipitor. 10. Loratadine. FAMILY HISTORY: Positive for prostate cancer. SOCIAL HISTORY: Single. No smoking. Social drinker. Occasional marijuana. REVIEW OF SYSTEMS: Positive for cough, fatigue, and fever. Otherwise negative. PHYSICAL EXAMINATION: VITAL SIGNS: Temperature is 99.7 with a T-max of 102.3, pulse is 94, respiratory rate 20, blood pressure is 113/69, and he is 94% on room air. GENERAL: This is a well-developed, well-nourished male, in no acute distress. HEENT: Normocephalic and atraumatic. Pupils are equal and reactive to light. NECK: Supple. CV: Regular rate and rhythm. LUNGS: Decreased, right worse than his left. ABDOMEN: Soft and nontender. Bowel sounds are positive. EXTREMITIES: No clubbing or cyanosis. SKIN: No rash. HEMATOLOGIC: No petechiae or purpura. NEUROLOGIC: Nonfocal. PSYCHIATRIC: He is alert, oriented and appropriate. PERTINENT LABORATORY DATA AND X-RAYS: Current WBCs are 5.6, hemoglobin 10.8, hematocrit 31.1, platelet count is 243,000, 72% neutrophils, 14% lymphocytes. Sodium is 134, potassium 3.7, chloride 104, CO2 is 22, BUN is 14, creatinine 1.03, lactic acid 1.6, calcium 8.7. Bilirubin 0.7, AST is 25, ALT is 25, alkaline phosphatase is 81. Troponin is negative. Serum total protein 6.1, albumin 3.0, and globulin 3.1. Urine is negative. ASSESSMENT: 1. Mesothelioma. 2. Sepsis. DISCUSSION: The patient has been wick-cultured, and preliminary results are negative. He continues on empiric antibiotics. He has contacted [facility] and surgery has been rescheduled. His oncologist there is aware of his admission for fever. We would recommend waiting until all final cultures are back and fever has resolved, and he can be discharged home to follow up with [facility]. Job ID: [id number]
[2019-01-27] MEDS: Atorvastatin Calcium 10 MG TAB PO SCH (20:14)
[2019-01-27] MEDS ORDERED: Prevnar 13-Val Conj/PF 0.5 ML SYRINGE IM ONE (21:00)
[2019-01-28] MEDS: Piperacillin/Tazobactam 4.5 GM in Sodium Chloride 0.9% 100 ML IVPB SCH ×3 (01:59→16:42)
[2019-01-28 06:07] LABS: Anion Gap 11 mmol/L (10-20); BUN (Urea Nitrogen) 12 mg/dL (8.4-25.7); Calc. Creatinine Clearance 156 mL/min (70-130); Calcium 8.9 mg/dL (7.8-10.44); Carbon Dioxide 22 mmol/L (22-29); Chloride 109 mmol/L (98-107); Estimated GFR-MDRD 84; Glucose 88 mg/dL (70-105); Potassium 3.8 mmol/L (3.5-5.1); Sodium 138 mmol/L (136-145)
[2019-01-28 06:24] LABS: #Eosinphils 0.2 thou/uL (0.0-0.7); #Monocytes 0.7 thou/uL (0.11-0.59); #Neutrophils 2.9 thou/uL (1.40-6.50); %Basophils 0.1 % (0.0-1.0); %Eosinophils 5.1 % (0.0-10.0); %Lymphocytes 19.8 % (21.0-51.0); %Monocytes 14.7 % (0.0-10.0); %Neutrophils 60.2 % (42.0-75.0); Hemoglobin 13.3 g/dL (14.0-18.0); Mean Corpuscular HGB CONC 33.6 g/dL (32.0-36.0); Mean Corpuscular Hemoglobin 28.8 pg (27.0-31.0); Mean Corpuscular Volume 85.6 fL (78.0-98.0); Mean Platelet Volume 7.7 fL (7.4-10.4); Platelet Count 213 thou/uL (130-400); RBC Distribution Width 12.3 % (11.5-14.5); Red Blood Cell (RBC) Count 4.61 mill/uL (4.70-6.10); White Blood Cell (WBC) Count 4.8 thou/uL (4.8-10.8)
[2019-01-28] MEDS: guaiFENesin ER 600 MG TAB PO SCH (08:33)
[2019-01-28] MEDS: DULoxetine 30 MG CAP PO SCH (08:33)
--- NOTE | 2019-01-28 08:56 | DIS ---
DATE OF ADMISSION: 01/26/2019 DATE OF DISCHARGE: 01/28/2019 ADMISSION DIAGNOSES: 1. Possible cellulitis. 2. Possible pneumonia, rule out sepsis. DISCHARGE DIAGNOSES: 1. Pneumonitis. 2. Pleural effusion. 3. Mesothelioma with metastasis. CONSULTATIONS: Nurse Practitioner, Jennifer Sanderson for Oncology. PROCEDURES: IV antibiotics. CT chest, chest x-ray. HOSPITAL COURSE: This is a 58-year-old gentleman undergoing chemotherapy at [facility] for mesothelioma, who presented to the emergency department with high fevers. It was thought that he had a recurrence of his right lower extremity cellulitis with possible sepsis. He was started on broad-spectrum antibiotics. Upon evaluation, his skin infection was minimal at best and likely not the source of his high fevers and possible sepsis syndrome. He continued on the broad- spectrum antibiotics. He has had a cough that has worsened over the past 2 weeks. Initial chest x-ray in the emergency department did not show any signs of pneumonia. Chest CT was done, which revealed right-sided pulmonary masses consistent with mesothelioma, metastatic disease to the mediastinum and right pleural effusion with loculation, possibly the source of an infection. The patient clinically improved throughout his hospitalization. His white blood cell count dropped down from 14 ,000 to 4.8. His fever started to decrease as well down to 98.0, and he was stable for discharge. PHYSICAL EXAMINATION: VITAL SIGNS: On the day of discharge; temperature 98.0, T-max of 101.9, pulse of 76, respirations 18, blood pressure 122/78, and pulse ox is 97% on room air. GENERAL: He is awake and alert, in no acute distress. Mucosa is moist. NECK: Supple. HEART: Regular rate and rhythm. LUNGS: Decreased breath sounds on the right. No wheeze, rales, or rhonchi. ABDOMEN: Soft. EXTREMITIES: With no edema. Right leg with minimal redness around excoriated areas. DISCHARGE LABORATORY DATA: White blood cell count 4.8, hemoglobin and hematocrit 13.3 and 39.5, and platelets of 213. Sodium 138, potassium 3.8, chloride 109, CO2 of 22, BUN and creatinine of 12 and 0.93 with a GFR of 84, serum glucose of 88, and calcium of 8.9. Urine was negative. Sputum cultures were growing few gram- positive cocci in pairs and clusters, few gram-negative rods. Flu test was negative. Blood cultures were negative. Urine culture with low colony count of gram-negative rods. MEDICATIONS: 1. Tylenol p.r.n. 2. Albuterol MDI p.r.n. 3. Lipitor 10 mg daily. 4. Tessalon 100 mg q.6 p.r.n. 5. Cymbalta 30 mg b.i.d. 6. Mucinex 600 mg b.i.d. 7. Metoprolol 25 mg daily. 8. Protonix 40 mg daily. 9. Levaquin 500mg daily Chemotherapeutic agents as per oncology FOLLOWUP INSTRUCTIONS: The patient to follow up in my office in 1 week and follow up with [facility] to reschedule the decortication. Job ID: [id number] MTDD
[2019-01-28] MEDS: Vancomycin HCl 1.75 GM in Sodium Chloride 0.9% 500 ML IVPB SCH ×2 (09:12→11:05)
[2019-01-28 09:24] LABS: Vancomycin, Trough 13.5 ug/mL
[2019-01-28] MEDS ORDERED: Vancomycin HCl 1.5 GM in Sodium Chloride 0.9% 250 ML 300 ML IVPB SCH (10:00)
[2019-01-28] MEDS: Azelastine 137 MCG/Spray 30 ML NS SCH (10:49)
[2019-01-28 17:15] VITALS: BP 105/68; TEMP 98.2
--- NOTE | 2019-01-31 08:12 | PQF ---
[employer] MIMI Mckeon YAN HOBBS DO [id number] CLINICAL DOCUMENTATION CLARIFICATION FORM: POST DISCHARGE Addendum to original discharge summary date: ____ Late entry note date: __ DATE: 01/31/2019 ATTN: YAN HOBBS DO Please exercise your independent, professional judgment in responding to the clarification form. Clinical indicators are provided on the bottom of this form for your review Please check appropriate box(s) to clarify if the following diagnosis has been ruled in or ruled out: Sepsis [ ] Ruled in diagnosis [ ] Continue to treat [ ] Resolved [ xx ] Ruled out diagnosis [ ] Cannot rule out diagnosis [ ] Other diagnosis [ ] Unable to determine For continuity of documentation, please document condition throughout progress notes and discharge summary. Thank You. CLINICAL INDICATORS - SIGNS / SYMPTOMS / LABS -Undifferentiated Sepsis-ED record, 01/26, Ghada Moore MD -WBC: 14.3-H&P, 01/26, Edmond Jimenez MD -Sepsis sec to right lower extremity cellulitis-H&P, 01/26, Edmond Jimenez MD -Tachypenic-H&P, 01/26, Edmond Jimenez MD -suspected etiology of his fever and sepsis syndrome- Progress note, 01/26, YAN HOBBS DO - metastatic disease to the mediastium and pleural effusion with loculation, possibly the source of an infecton-DS, 01/28, YAN HOBBS DO -Temp: 101.9, Pulse: 76, RR: 18-DS, 01/28, YAN HOBBS DO RISK FACTORS -Pneumonitis-DS, 01/28, YAN HOBBS DO -Mesothelioma with metastasis-DS, 01/28ANJEL CHRISTOPHER J DO TREATMENTS -Zosyn.IV-MAR, 01/26 (This form is maintained as a part of the permanent medical record) CONRADO
== END 2019-01-28 17:48 | disposition home or self-care (01) | DRG 602 ==
LOC: ERS 09:53 → ERHOLD 15:39 → T4-A 19:29
PROVIDERS: ADMIT Family Medicine; ATTEND Family Medicine
DX: L03.115 Cellulitis of right lower limb (principal); J18.9 Pneumonia, unspecified organism; C78.1 Secondary malignant neoplasm of mediastinum; C78.2 Secondary malignant neoplasm of pleura; J91.0 Malignant pleural effusion; C45.9 Mesothelioma, unspecified; I10 Essential (primary) hypertension; E78.5 Hyperlipidemia, unspecified; K21.9 Gastro-esophageal reflux disease without esophagitis; G47.33 Obstructive sleep apnea (adult) (pediatric); H90.5 Unspecified sensorineural hearing loss; F41.9 Anxiety disorder, unspecified; Z85.828 Personal history of other malignant neoplasm of skin
CPT/HCPCS: 36415; 71045; 71250; 80048; 80053; 80202; 81003; 83605; 84484; 85025; 87040; 87070; 87086; 87205; 87804; 93005; 96361; 96365; J2543; J3370; J3480; J3490; J7050